=== PATIENT | female | born 1980 | race Caucasian/White ===

== ENCOUNTER 2018-10-06 09:46 | Emergency (ER) | payer BC, OTHER, SELFPAY ==
[2018-10-06] MEDS ORDERED: Lidocaine 2% w/Epinephrine 1:200K 20 ML VIAL ONE (11:00)
[2018-10-06] MEDS ORDERED: Adacel (T-DAP) 0.5 ML SYRINGE ONE (12:07)
[2018-10-06] MEDS ORDERED: Triple Antibiotic Oint 1 GM Packet ONE (12:07)
[2018-10-06] MEDS ORDERED: Sterile Water Irrigation 250 ML BOT ONE (13:20)
== END 2018-10-06 12:30 | disposition home or self-care (01) ==
LOC: MADERS 09:46
DX: S61.214A Laceration without foreign body of right ring finger without damage to nail, initial encounter (principal); X58.XXXA Exposure to other specified factors, initial encounter
CPT/HCPCS: 12002; 90471; 90715